=== PATIENT | male | born 1965 | race Caucasian/White ===

== ENCOUNTER → 2025-04-01 13:15 | Outpatient (REF) | payer BC, SELFPAY | LOC: RAD 13:15 | PROVIDERS: ATTENDING PHYSICIAN Physician Assistant Medical | DX: M54.41 Lumbago with sciatica, right side (principal) | CPT/HCPCS: 72110 ==

== ENCOUNTER → 2025-05-01 06:35 | Outpatient (REF) | payer BC, SELFPAY | LOC: MRI 06:35 | PROVIDERS: ATTENDING PHYSICIAN Physician Assistant Medical | DX: M54.41 Lumbago with sciatica, right side (principal); M54.42 Lumbago with sciatica, left side | CPT/HCPCS: 72148 ==

== ENCOUNTER 2025-07-05 12:48 | Emergency (ER) | payer BC, SELFPAY ==
[2025-07-05 12:50] VITALS: BP 136/115
[2025-07-05 13:14] LABS: Hematocrit 43.1 % (39.0-52.0); Hemoglobin 15.1 g/dL (13.0-18.0); Mean Corp Hgb Conc. 35.0 g/dL (33.0-37.0); Mean Corpuscular Volume 79.8 fL (80.0-94.0); Nucleated Red Blood Cells % 0 % (-); Platelet Count 240 10^3/uL (130-400); Red Cell Dist. Width 12.7 % (11.5-14.5)
[2025-07-05 13:21] LABS: ALT (SGPT) 19 U/L (0-50); AST (SGOT) 28 U/L (17-59); Albumin 4.7 g/dl (3.5-5.0); Alkaline Phosphatase 68 U/L (38-126); Blood Urea Nitrogen 15 mg/dl (9-20); Calcium 9.4 mg/dl (8.4-10.2); Carbon Dioxide 23 mmol/L (22-30); Chloride 107 mmol/L (98-107); Glucose 98 mg/dl (70-99); Lipase 79 U/L (23-300); Potassium 3.9 mmol/L (3.5-5.1); Sodium 139 mmol/L (135-145); Total Protein 7.3 g/dl (6.3-8.2); eGFR > 60.00
[2025-07-05] MEDS: LIDOCAINE 4% PATCH 1 PATCH TOPICAL (16:26)
[2025-07-05 16:29] VITALS: BP 133/82
[2025-07-05 17:12] LABS: Urine Character Clear (Clear)
--- NOTE | 2025-07-05 18:21 | ED.GENMED ---
History of Present Illness
General
Chief Complaint: Abdominal Pain
Time Seen by Provider: 07/05/25 15:58
Nursing documentation reviewed up to this point in time: agreed with
History of Present Illness
History of Present Illness:
59-year-old male presents to the ER for evaluation and treatment of sharp burning discomfort along his right flank which present has been admittedly off and on for the last several months. He states that it has been more persistent since yesterday.
He denies any direct injury or trauma. He reports that it is significantly worse with movement and activity. He denies any cough or cold symptoms. No change in appetite. No vomiting or diarrhea. He denies any dysuria or hematuria. He denies
any rash. He has not been taking any medications for his discomfort. He has recently had MRIs of his lumbar spine for sciatica in his left leg, no prior history of issues with disc herniation in his thoracic spine. He denies any fevers.
Past History
Past History
ED Past Medical History: Other (constipation); Negative CAD, COPD, GERD, HTN, Hypercholesterolemia, NIDDM or Hypothyroidism
ED Past Surgical History: Other (umbilical hernia)
Social History
Tobacco: Non-smoker
Alcohol: None
Family History
Family History: Negative Early CAD or Sudden
Review of Systems
Review of Systems
Allergies reviewed?: Yes
Phy Exam
Physical Exam
Physical Exam:
Patient is awake, alert, appears in no acute distress, head is NCAT, PERRL, EOMI mucous membranes moist, conjunctiva pink, heart regular rate and rhythm without murmurs or ectopy, no JVD, lungs are clear to auscultation without wheezes rales or
rhonchi, pain is reproducible on palpation on the right lower ribs anteriorly., No crepitus, no abnormal chest wall excursion, no overlying rash, no midline pain on palpation of thoracic spine, no step-offs, no crepitus, abdomen is soft and
nontender on palpation, no guarding or rebound, no masses, extremities without edema, 2+ DP pulses present symmetric bilateral feet, GCS is 15
Course
Orders/Labs/Results
Orders:
Orders
07/05/25 12:58
Complete Blood Count/With Diff Urgent
Comprehensive Metabolic Panel Urgent
Lipase Urgent
07/05/25 16:15
Lidocaine [Lidocaine 4% Patch] 1 patch TOPICAL DAILY
Apply Lidocaine patch(s) to:: R anterior lower chest wall
07/05/25 16:54
Urinalysis Reflex To Culture Urgent
Date Specimen was Collected: 07/05/25
Time Specimen was Collected: 16:32
07/05/25 17:20
CR Chest - 2 Views Urgent
Comment:
Reason For Exam: R lower chest pain
Abnormal Lab Results
07/05/25 07/05/25
12:58 16:54
MCV 79.8 L fL
(80.0-94.0)
MPV 10.6 H fL
(7.4-10.4)
Total Bilirubin 1.8 H mg/dl
(0.2-1.3)
Urine Ketones 3+ A
(Negative)
07/05/25 12:58
07/05/25 12:58
Labs are very reassuring, CBC normal, BMP normal
Vital Signs
Initial and Last Documented VS:
Initial Vital Signs
Temp Pulse Resp BP Pulse Ox
98.1 F 98 18 136/115 95
07/05/25 12:50 07/05/25 12:50 07/05/25 12:50 07/05/25 12:50 07/05/25 12:50
Last Documented Vital Signs
Temp Pulse Resp BP Pulse Ox
98.1 F 69 18 133/82 98
07/05/25 12:50 07/05/25 16:29 07/05/25 16:29 07/05/25 16:29 07/05/25 18:24
MDM/Problems Addressed
Differential Diagnosis Includes:
Differential diagnosis to consider but not limited to thoracic radiculopathy, occult pneumonia, rib strain, shingles along with other etiologies considered
*Radiology
Radiology exam reviewed: preliminary read by ED provider (I dependently viewed and interpreted x-ray of the chest showing no acute process, no infiltrate) and radiology read reviewed (No acute process)
*Pulse Oximetry
SaO2: 98
Oxygen Mode of Delivery: Room air
Patient hypoxic: no
*Critical Care Note
Total Time (30-74mins, 75-104mins- exclusive of procedures): Not Applicable
Update Note
Update Note:
I spoke with patient and present at bedside at length with regard to duration and quality of patient's pain. Symptoms seem most neuropathic in nature. No rash overlying and that appears to be shingles, would not suspect shingles given
duration of symptoms. He has no abdominal complaints or reproducible abdominal pain on palpation. I discussed with him very reassuring labs. X-rays ordered to rule out occult malignancy versus mass versus rib lesion-no acute process seen on chest
x-ray. Patient was given a salonpas patch with some improvement in his symptoms. I discussed with him possible use of Tylenol or ibuprofen for additional pain relief-he is declining any oral analgesics. I discussed with patient need to follow-up
with primary care physician as he may benefit from imaging of his thoracic spine as he may have disc herniation they are which are causing his symptoms. Patient and present bedside feel comfortable with plan for discharge and had no questions
prior to leaving the department.
ED Attending Note
-
Portions of this chart may have been created with voice recognition software.� Occasional wrong word or��sound alike� substitutions may have occurred due to the inherent limitations of voice recognition software.
Discharge Plan
Departure
Patient Disposition: Home (Routine Discharge)
Date of Disposition: 07/05/25
Time of Disposition: 18:22
Patient with high blood pressure during this ER visit?: No
Discharge Problem:
Acute pain, Radicular pain of thoracic region
Instructions: Radiculopathy of the neck and back (including sciatica) (DC)
Prescriptions:
No Action
polyethylene glycol 3350 17 GRAMS powder in packet
17 grams PO DAILY Qty: 14 0RF
Referrals:
Candida Choi PA [Family Provider, Family Practice]
Activity Restrictions/Additional Instructions:
Please use topical pain relieving patches, Salonpas or similar, as available [id number] as needed for your discomfort. Please follow-up with your primary care physician for reevaluation and further care as you may benefit from additional
imaging to assess for possible pinched nerve in your midback. Return to the ER for any concerns. Please also consider using Tylenol and/or ibuprofen as needed for discomforts.
Interventions
Interventions:
*Risk Screen - Suicide Last Done: 07/05/25 12:52
*General Assessment Last Done: 07/05/25 16:29
*Neglect/Abuse Screening Last Done: 07/05/25 12:52
*ED COVID-19 Vaccine History Last Done: 07/05/25 16:29
*Nursing Disposition Last Done: 07/05/25 18:33
QZ-Tfvomo-Crezuxqfxm Assessment Last Done: 07/05/25 17:12
Discharge Date and Time
Discharge Date/Time: 07/05/25 18:33
Print Language: CITIZEN OF [place]
== END 2025-07-05 18:33 | disposition home or self-care (01) ==
LOC: EMR 12:48
PROVIDERS: Emergency Medicine; EMERGENCY PHYSICIAN Emergency Medicine; FAMILY PHYSICIAN Physician Assistant Medical
DX: M54.14 Radiculopathy, thoracic region (principal); R07.89 Other chest pain
CPT/HCPCS: 99284; 71046; 80053; 81003; 83690; 85025

== ENCOUNTER 2025-07-21 10:43 | Inpatient (IN) | payer BC, SELFPAY ==
[2025-07-21 04:27] VITALS: BP 120/94
[2025-07-21 05:11] LABS: Hematocrit 45.6 % (39.0-52.0); Hemoglobin 15.7 g/dL (13.0-18.0); Mean Corp Hgb Conc. 34.4 g/dL (33.0-37.0); Mean Corpuscular Volume 80.9 fL (80.0-94.0); Nucleated Red Blood Cells % 0 % (-); Platelet Count 225 10^3/uL (130-400); Red Cell Dist. Width 12.7 % (11.5-14.5)
[2025-07-21 05:14] LABS: ALT (SGPT) 20 U/L (0-50); AST (SGOT) 28 U/L (17-59); Albumin 5.0 g/dl (3.5-5.0); Alkaline Phosphatase 73 U/L (38-126); Blood Urea Nitrogen 20 mg/dl (9-20); Calcium 9.8 mg/dl (8.4-10.2); Carbon Dioxide 24 mmol/L (22-30); Chloride 106 mmol/L (98-107); Glucose 161 mg/dl (70-99); Lipase 59 U/L (23-300); Potassium 4.4 mmol/L (3.5-5.1); Sodium 140 mmol/L (135-145); Total Protein 7.5 g/dl (6.3-8.2); eGFR > 60.00
--- NOTE | 2025-07-21 06:20 | ED.GENMED ---
History of Present Illness
General
Chief Complaint: Abdominal Pain
Source: patient
Exam Limitations: none
Time Seen by Provider: 07/21/25 06:08
History of Present Illness
History of Present Illness:
59-year-old male otherwise fairly healthy presents complaining of right sided abdominal pain with vomiting starting yesterday after having soup. He has been moving his bowels. No diarrhea. No change in his bowel movements. Pain persistent mainly
to the right upper abdomen does not radiate to the back. He was here several weeks ago for similar pain but did not have any vomiting at that time was thought to have musculoskeletal discomfort. He has a remote history of a hernia repair but no
other surgical history. No other this time
Past History
Past History
ED Past Medical History: Other (constipation); Negative CAD, COPD, GERD, HTN, Hypercholesterolemia, NIDDM or Hypothyroidism
ED Past Surgical History: Other (umbilical hernia)
Social History
Tobacco: Non-smoker
Alcohol: None
Family History
Family History: Negative Early CAD or Sudden
Phy Exam
Physical Exam
Physical Exam:
General: Uncomfortable appearing male no acute respiratory distress
HEENT: Normal cephalic atraumatic
Heart: Regular rate rhythm
Lungs: Clear no wheeze
Abdomen is soft but tender to the right upper quadrant mildly positive Marinelli sign no guarding nondistended no costovertebral angle tenderness
Skin is warm no rash
Course
Orders/Labs/Results
Orders:
Orders
07/21/25 04:30
Add On- LAB Urgent
Tests Added?: lipase
07/21/25 04:33
CMP [Comprehensive Metabolic Panel] Urgent
Complete Blood Count/With Diff Urgent
Lipase Urgent
Comment: ADD ON
07/21/25 06:19
0.9% Sodium Chloride 1000 ml [Nss] 1,000 ml IV BOLUS
Ketorolac [Toradol] 15 mg IV NOW STA
Ondansetron Injectable [Zofran] 4 mg IV NOW STA
US Abdomen Complete/Upper Urgent
Comment:
Reason For Exam: RUQ pain
07/21/25 07:53
CT Abd/pelvis W Iv Cont Urgent
Comment:
Reason For Exam: right upper abdominal pain
Abnormal Lab Results
07/21/25
04:33
MPV 10.7 H fL
(7.4-10.4)
Absolute Neuts (auto) 7.3 H 10^3/uL
(1.4-6.5)
Absolute Lymphs (auto) 0.6 L 10^3/uL
(1.2-3.4)
Neutrophils % 88.9 H %
(42.2-75.2)
Lymphocytes % 7.6 L %
(20.5-51.1)
Glucose 161 H mg/dl
(70-99)
Total Bilirubin 2.1 H mg/dl
(0.2-1.3)
07/21/25 04:33
07/21/25 04:33
Vital Signs
Initial and Last Documented VS:
Initial Vital Signs
Temp Pulse Resp BP Pulse Ox
97.8 F 104 24 120/94 98
07/21/25 04:27 07/21/25 04:27 07/21/25 04:27 07/21/25 04:27 07/21/25 04:27
Last Documented Vital Signs
Temp Pulse Resp BP Pulse Ox
97.8 F 98 24 130/79 98
07/21/25 04:27 07/21/25 06:31 07/21/25 06:31 07/21/25 06:31 07/21/25 06:31
MDM/Problems Addressed
Differential Diagnosis Includes:
Abdominal pain with vomiting. Consider biliary colic versus gastritis/bowel obstruction. Is pretty tender on exam. Will order ultrasound. Toradol and Zofran ordered as well as fluids
Labs reviewed significant for bilirubin of 2.1 otherwise normal transaminases. White count is normal. Lipase is normal
*Pulse Oximetry
SaO2: 98
Oxygen Mode of Delivery: Room air
Patient hypoxic: no
*Critical Care Note
Total Time (30-74mins, 75-104mins- exclusive of procedures): Not Applicable
Update Note
Update Note:
Ultrasound shows slightly distended gallbladder but otherwise normal. Patient with persistent pain. Proceeded to CT scan which demonstrates dilated loops of small bowel. The small bowel distal to this area is decompressed and the small bowel
proximal to this is normal in appearance. This could raise concern for possible closed-loop obstruction. There is no evidence of pneumatosis. Discussed with emergency room attending as well as general surgery. He is feeling better after Toradol
and not currently vomiting.
ED Attending Note
-
Portions of this chart may have been created with voice recognition software.� Occasional wrong word or��sound alike� substitutions may have occurred due to the inherent limitations of voice recognition software.
Discharge Plan
Departure
Patient Disposition: Admit
Date of Disposition: 07/21/25
Time of Disposition: 09:18
Presentation/result/management discussed w/ accepting MD/DO: Hospitalist
Discharge Problem:
Small bowel obstruction
Prescriptions:
No Action
polyethylene glycol 3350 17 GRAMS powder in packet
17 grams PO DAILY Qty: 14 0RF
Referrals:
Candida Choi PA [Family Provider, Family Practice]
Interventions
Interventions:
*Risk Screen - Suicide Last Done: 07/21/25 04:27
*General Assessment Last Done: 07/21/25 06:32
*Neglect/Abuse Screening Last Done: 07/21/25 04:27
*ED- Fall Risk Assessment Last Done: 07/21/25 06:32
*ED COVID-19 Vaccine History Last Done: 07/21/25 06:32
*ED Influenza Vaccine History Last Done: 07/21/25 06:32
[facility]-Pulyqw-Pltwkbkejt Assessment Last Done: 07/21/25 06:32
Discharge Date and Time
Print Language: GABONESE
[2025-07-21] MEDS: NSS 1000 IV ×2 (06:29→12:38)
[2025-07-21] MEDS: ZOFRAN 4 MG IV ×2 (06:29→14:00)
[2025-07-21] MEDS: TORADOL 15 MG IV (06:29)
[2025-07-21 06:31] VITALS: BP 130/79
[2025-07-21 06:33] VITALS: BMI 26.7
--- NOTE | 2025-07-21 10:20 | HPS.HSE ---
Addendum entered and electronically signed by Edgar Rose MD 07/21/25 13:42:
Seen and examined the patient with the resident earlier this morning. Late documentation
Agree with assessment and plan formulated together
59-year-old with history of bowel obstruction x 2 with no need for surgical intervention. Only past surgical history for the abdomen is inguinal hernia repair came in with nausea vomiting and abdominal pain
On examination awake alert oriented
Cardiovascular system S1-S2 appreciated
Chest clear to auscultation
Abdomen decreased bowel sounds, patient had received Dilaudid therefore did not elicit any pain when I examine him no guarding or rigidity
No pedal edema
# High-grade small bowel obstruction
Transition point not appreciated.
Keep n.p.o. with IV fluids
Surgery consultation
# Mild prostatic enlargement-watch for any retention
# DVT prophylaxis-Lovenox
# Full code
Discussed with at bedside
Discussed with surgical team
Original Note:
Family Physician
-
Family Physician: Candida Choi
Chief Complaint
-
Abdominal pain, nausea and emesis.
History of Present Illness
Georgia Kay, 59-year-old male with PMHx significant for small bowel obstruction x 2 (no surgical intervention), and inguinal hernia repair in the past but otherwise healthy presents to the ER for evaluation of sudden onset nausea vomiting and
abdominal pain. Patient had a bowel movement yesterday at 8 AM, had his breakfast and lunch and towards the evening he started having cramping right lower quadrant abdominal pain associated with nausea and emesis. He had more than 6 episodes of
vomiting with most recent vomiting upon arrival to the emergency room. He did not pass any gas or bowel movement after the whole episode started. He also reports to have similar pain several weeks ago without vomiting but attributes this cramping
abdominal pain to muscle aches. He admits to have constipation several years ago, he needed several enemas as a child and adolescent but eventually grew out of it.
He denies having any change in his bowel movements-constipation or diarrhea, black tarry stools or hematochezia, fevers, chills, shortness of breath, dizziness syncope or near syncopal episodes.
He denies having paternal family history of IBD, states father had history of colorectal cancer, he is unaware of maternal family history.
His most recent colonoscopy was 4 years ago, diagnosed with polyps, repeat colonoscopy is due in 2025.
Medical History
Past Medical History
Past Medical History: Reports Other (SBO x 2)
Past Surgical History: Reports Other (Inguinal hernia repair.)
Social History
Tobacco: Non-smoker
Alcohol: None
Drug: None
Personal:
Living: With Family
Employment: Employed
Family History
Family History: Other (Father-colon cancer, diabetes, mother-say several health conditions but unknown to him.)
Allergies / Home Medications
Allergies reflects when Allergies were last updated in [facility].
Home Medications with original date entered in [facility]
Allergy/Medication List:
Allergies
Allergy/AdvReac Type Severity Reaction Status Date / Time
cefuroxime (From Ceftin) Allergy Vomiting Verified 07/21/25 04:29
Penicillins Allergy Unknown Verified 07/21/25 04:29
Home Medications
cholecalciferol (vitamin D3) 25 mcg (1,000 unit) tablet (Vitamin D3) 25 mcg PO DAILY 07/21/25
therapeutic multivitamin 1 tab PO DAILY 07/21/25
Review of Systems
-
Constitutional: Reports Chills
EENT: Reports No Symptoms
Respiratory: Reports No Symptoms
Cardiac: Reports No Symptoms
Abdomen/GI: Reports Abdominal Pain, Nausea and Vomiting
: Reports No Symptoms
Musculoskeletal: Reports No Symptoms
Skin: Reports No Symptoms
Neurological: Reports No Symptoms
Endocrine: Reports No Symptoms
Hematologic/Lymphatic: Reports No Symptoms
Physical Exam
Vital Signs
Vital Signs
Temp Pulse Resp BP Pulse Ox
97.8 F 98 24 130/79 98
07/21/25 04:27 07/21/25 06:31 07/21/25 06:31 07/21/25 06:31 07/21/25 06:31
Physical Exam
General: No Apparent Distress, Comfortable and Conversant
HEENT: Anicteric and PERRLA
Respiratory: Clear; No Wheezes, Rales, Rhonchi or Crackles
Cardiac: S1/S2 and Regular Rhythm; No Murmur, Rub or Gallop
GI: Soft, Tender (Mild tenderness in the right lower quadrant.) and No Hepatosplenomegaly; No Normal Bowel Sounds (High-pitched and hyperactive bowel sounds.)
Genito-urinary: Deferred by me
Musculoskeletal: No Clubbing, No Cyanosis and No Edema
Skin: Warm; No Rash or Lesions
Neuro: AO x 3 and Nonfocal/grossly intact
Psych: Calm
Laboratory Results
-
07/21/25 04:33
07/21/25 04:33
Laboratory Results
Total Bilirubin 2.1 mg/dl (0.2-1.3) H 07/21/25 04:33
AST 28 U/L (17-59) 07/21/25 04:33
ALT 20 U/L (0-50) 07/21/25 04:33
Alkaline Phosphatase 73 U/L (38-126) 07/21/25 04:33
Lipase 59 U/L (23-300) 07/21/25 04:33
Data Reviewed
-
CT Scan: Image Personally Visualized and interpreted, Report Reviewed by me and Discussed with Patient
Medical Tests (Nuc Med, Echo, EKG etc): Report Reviewed by me, Discussed with Physician and Discussed with Patient
Lab Data: Labs Reviewed by me, Discussed with Physician and Discussed with Patient
Impression/Plan
-
IMPRESSION: 59-year-old male, otherwise healthy with remote history of inguinal hernia repair presents to the ER for evaluation of nausea vomiting and abdominal pain. He is diagnosed with small bowel obstruction and is being admitted.
PLAN:
# Acute Small bowel obstruction-
Afebrile, tachycardia and tachypnea, with no leukocytosis in the ER.
CT abdomen shows multiple dilated loops of mid small bowel with no exact transition point.
2 similar episodes in the past 2 years, did not require surgery.
Admit the patient to [facility].
N.p.o., IV Zofran, pain control as needed.
If patient continues to have emesis, plan for NG decompression.
Surgery consulted, appreciate inputs, on board.
No family history of IBD, otherwise no obvious cause of recurrent bowel obstruction.
Check for fecal calprotectin when patient has bowel movement.
Recent colonoscopy 4 years ago significant for colonic polyps.
IV fluids NSS @80.
# DVT prophylaxis-
Sequential compression devices
# CODE STATUS-
Full code.
--- NOTE | 2025-07-21 10:23 | CON.GS ---
Addendum entered and electronically signed by Kelby Arnold MD 07/21/25 16:37:
I was physically present and personally performed the thomsa portions of the surgical evaluation and/or procedure with the resident. I discussed the findings, reviewed the resident�s note, and confirmed the medical decision-making. I provided direct
supervision as required and agree with the assessment and plan as documented with the following additions/corrections:
HPI: 59-year-old male with previous abdominal surgical history of having undergone laparoscopic IPOM umbilical hernia pair with mesh at outside hospital. He has had 1 previous admission for small bowel obstruction in 2019 which resolved with
conservative management. Patient states he was in his usual baseline state of health until yesterday evening when he developed the acute onset of abdominal pain, intermittent crampy with bloating and distention. He then had multiple episodes of
vomiting. Presented to the emergency department for evaluation and CT imaging concerning for small bowel obstruction.
Has felt improvement since earlier this a.m. with near resolution of abdominal pain only residual distention. No further nausea, no vomiting. No recent flatus. Last bowel movement yesterday.
On further discussions patient states that he has similar milder episodes on a monthly basis usually after having larger meals or fibrous meals. His symptoms typically meghann within an hour or so and without nausea or vomiting.
Patient without significant past medical history otherwise.
AFVSS
NAD AAO x 3
ABD: Softly distended, mild areas of tenderness but no rebound rigidity or guarding
CT abdomen/pelvis images personally reviewed and interpreted as well as reviewing radiologist report. Multiple fluid-filled central loops of small bowel. There does appear to be probable transition along the central mesh but without small bowel
feces sign. No radiographic signs of volvulus. No pneumatosis, no free air, no significant free fluid. No small bowel wall thickening.
In comparison to previous CT imaging small bowel is a bit less distended and abrupt transition not visualized on this imaging compared to 2020.
Assessment/plan: 59-year-old male with probable partial small bowel obstruction, recurrent, likely secondary to adhesions in setting of umbilical herniorrhaphy with mesh
No clinical signs of bowel compromise or immediate threat.
Continue bowel rest IV fluid hydration and supportive care
Cannot hold on NG tube placement at this time given clinical improvement.
Subsequent consideration of contrast imaging depending clinical course over the next 12 to 24 hours.
Will follow-up
Original Note:
Consultation
-
Date/Time Consultation Requested: 07/21/2025 9:50
Date/Time Consultation Performed: 07/21/2025 11:30
Requesting Provider: Everardo Kent PA-C
Performing Provider: Kelby Arnold MD; Eliz Banegas MD
Reason for Consultation: SBO
Medical History
-
Chief Complaint: Abdominal pain
History of Present Illness:
59 year old male with past medical history of umbilical hernia s/p repair, allergic rhinitis, basal cell carcinoma s/p MOHS, multiple sessile polyps in gastric fundus and body; other past surgical history include a rotator cuff arthroscopy
presenting with right quadrant abdominal pain. 1 day prior to evaluation, the patient noted feeling bloated, accompanied by nausea, later progressing to multiple episodes of vomiting of previously digested food and bilious fluid. He also started
developing right quadrant pain described as non-radiating, pressure like, intermittent, crampy pain, later becoming a constant pain. He notes having multiple episodes of constipation and abdominal pain a few times a month which usually resolves
spontaneously. He was admitted for small bowel obstruction in 2019, managed conservatively. He was also in the ED last 07/05/25 for similar type of pain. He denies fever and diarrhea. Reportedly ate rice crispies with banana, apple and dates prior
to lunch; notes that he tries to eat a lot of fruits. Last bowel movement was yesterday morning and reports that he normally has regular bowel movement, aside from occasional bouts of constipation.
At time of consult, notes that he was vomiting in the ambulance and in the ER, but the patient reports that his abdominal pain is feeling better after getting pain medications.
CT shows: Multiple dilated loops of mid small bowel. Distal small bowel is decompressed, and the proximal small bowel is not dilated. Findings are consistent with high-grade small bowel obstruction.
Exact transition point not appreciated. No pneumatosis intestinalis or extraluminal air. No abdominal pelvic free fluid.
WBC:8.2, Total Bilirubin 2.1
Past Medical History
Past Medical History: Other (Allergic Rhinitis)
Past Surgical History: Other (Umbilical hernia s/p repair, basal cell cancer s/p MOHS, rotator cuff arthroscopy)
Social History
Tobacco: Non-Smoker
Alcohol: None
Drug: None
Personal:
Living: With Family
Employment: Employed
Family History
Family History: Reviewed & Not Pertinent
Allergies / Home Medications
Allergy/AdvReac Type Severity Reaction Status Date / Time
cefuroxime (From Ceftin) Allergy Vomiting Verified 07/21/25 04:29
Penicillins Allergy Unknown Verified 07/21/25 04:29
�Medication �Instructions �Recorded �Confirmed �Type
cholecalciferol (vitamin D3) 25 25 mcg PO DAILY 07/21/25 07/21/25 History
mcg (1,000 unit) tablet (Vitamin
D3)
therapeutic multivitamin 1 tab PO DAILY 07/21/25 07/21/25 History
Review of Systems
-
History Source: Patient
A 10 point review of systems was completed, and was negative except as per HPI.
Physical Exam
Vital Signs
Temp Pulse Resp BP Pulse Ox
97.8 F 98 24 130/79 98
07/21/25 04:27 07/21/25 06:31 07/21/25 06:31 07/21/25 06:31 07/21/25 06:31
07/20/25 07/21/25 07/22/25
06:59 06:59 06:59
Actual Weight 72.8 kg
Body Mass Index (BMI) 26.7
Lab Results
07/21/25 04:33
07/21/25 04:33
WBC 8.2 10^3/uL (4.8-10.8) 07/21/25 04:33
Hgb 15.7 g/dL (13.0-18.0) 07/21/25 04:33
Hct 45.6 % (39.0-52.0) 07/21/25 04:33
Plt Count 225 10^3/uL (130-400) 07/21/25 04:33
Abs Immat Gran (auto) 0.0 10^3/uL (0-0.05) 07/21/25 04:33
Neutrophils % 88.9 % (42.2-75.2) H 07/21/25 04:33
Physical Exam
General: Well Developed, Well Nourished and No Apparent Distress
Respiratory: Non Labored Respirations
GI: Soft, Tender (left supraumbilical area ) and Distended
Skin: Warm
Neuro: AO x 3
Psych: Calm
Data Reviewed
-
CT Scan: Image Personally Visualized and interpreted (by attending surgeon), Report Reviewed by me (and by attending surgeon) and Discussed with Patient (by attending surgeon)
Assessment / Plan
-
59 year old male with past medical history of umbilical hernia s/p repair, allergic rhinitis, basal cell carcinoma s/p MOHS, multiple sessile polyps in gastric fundus and body, other past surgical history include a rotator cuff arthroscopy
presenting with right quadrant abdominal pain associated with nausea and multiple episodes of vomiting. Notes recurrent bouts of abdominal pain and constipation a few times a month. Prior admission of SBO in 2019 managed conservatively; in the ED on
07/05/2025 for similar type of pain, Eats lots of fruits. LBM: yesterday morning. (-) flatus today. Abdominal pain feeling better with pain medication, last vomiting episode was in the ER.
CT shows: Multiple dilated loops of mid small bowel. Distal small bowel is decompressed, and the proximal small bowel is not dilated. Findings are consistent with high-grade small bowel obstruction.
Exact transition point not appreciated. No pneumatosis intestinalis or extraluminal air. No abdominal pelvic free fluid.
WBC:8.2, Total Bilirubin 2.1
#Small Bowel Obstruction
-NPO and bowel rest-- Imaging was reviewed; closed-loop bowel obstruction seems unlikely. Reports that abdominal pain is feeling better and reports multiple episode of similar pain spontaneously resolving or managed conservatively.
Possibility of NGT decompression if no improvement, possible need for follow up imaging, and avoiding diet rich in fiber discussed. Concerns for frequent recurrence of symptoms also explained to the patient; discussed that he may benefit from
outpatient follow-up. Questions answered in length.
-IV fluids
-Pain management and antiemetics
-DVT prophylaxis
-Medical management per primary team
[2025-07-21 10:50] VITALS: BP 130/77
--- NOTE | 2025-07-21 12:05 | EDCM ---
CM reviewed chart and met with patient at bedside in ED
Pt lives in a 2 story home [address] with his
bathroom on the first floor
Pt reports he was indep with ADLs prior to admission
Ambulating without assistive device
no DME use
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
PCP Candida Choi
RX plan yes
RX [facility] in [place]
no hx of VN nor SNF
anticipated dc location ; home
CM will continue to follow pt discharge planning needs
[2025-07-21 12:33] VITALS: BMI 25.8
[2025-07-21 12:44] VITALS: BP 140/84
--- NOTE | 2025-07-21 15:10 | PTCARENOTE ---
Assumed care of pt at 1500. NG tube ordered, pt agreeable to procedure.
[2025-07-21 15:25] VITALS: BP 137/84
[2025-07-21 16:20] LABS: TSH 0.89 uIU/ml (0.47-4.68)
--- NOTE | 2025-07-21 16:40 | PTCARENOTE ---
Place 16 fr NG tube in pt's r nare; pt tolerated procedure, initial output of 250 ml brown/green drainage.
[2025-07-21] MEDS: LOVENOX 40 MG SC (17:02)
[2025-07-21] MEDS: ANESTHETIC LOZENGE 1 LOZENGE PO (22:29)
[2025-07-21 23:05] VITALS: BP 126/82
[2025-07-22] MEDS: NSS 1000 IV ×2 (00:45→15:36)
[2025-07-22 07:13] VITALS: BP 115/77
--- NOTE | 2025-07-22 07:15 | W.PN.HOSP.TC ---
Addendum entered and electronically signed by Edgar Rose MD 07/22/25 14:29:
Seen and examined the patient with the resident earlier this morning.
Agree with assessment and plan formulated together
59-year-old with history of bowel obstruction x 2 with no need for surgical intervention. Only past surgical history for the abdomen is inguinal hernia repair came in with nausea vomiting and abdominal pain
On examination awake alert oriented
Cardiovascular system S1-S2 appreciated
Chest clear to auscultation
Abdomen decreased bowel sounds, No tenderness
No pedal edema
# High-grade small bowel obstruction
Transition point not appreciated.
Keep n.p.o. with IV fluids
SBFT today
Surgery consultation
# Mild prostatic enlargement-watch for any retention. OP Urology follow up
# DVT prophylaxis-Lovenox
# Full code
Discussed with at bedside
Original Note:
Today's Communication/Plan
-
Continue NG tube per surgery team
Continue IV pain meds
Continue IV Zofran
Assessment / Plan
Assessment / Plan
Assessment:
This is a 59 y/o male with pmhx of small bowel obstruction (No surgical interventions required), inguinal hernia repair who presented to the ED on 07/21/2025 with sudden onset of nausea, vomiting, and abdominal pain and was found to have a small
bowel obstruction on CT scan.
Plan:
Acute, High-Grade Small Bowel Obstruction
-Patient with history of small bowel obstruction in 2019 without surgical intervention required
-Recent colonoscopy 4 years ago significant only for colonic polyp
-CT Scan showed multiple dilated loops of mid small bowel with no exact transition point
-Continue IV Zofran PRN for nausea
-Continue pain medications PRN (Hydromorphone 0.25mg IV Q4h, Ketorolac 10mg IV Q6h,
-Continue IV Fluids while patient remains NPO
-NG tube in place.
-Surgery has been consulted, appreciate their insight into his case
-Will monitor
Elevated Bilirubin
-Known to him, chronic and being followed by PCP
-Encouraged outpatient follow up
Mild Prostatic Enlargement
-Monitor for signs of urinary retention
Anticipated Discharge: 24 - 48 hours
Subjective/Interval History
-
Date of Service: July 22, 2025
Patient was sitting in his room with NG tube in place when I arrived. He reports overall feeling better than he did the day prior. He has not had any bowel movements since 07/20 but has passed gas as recently a this morning. He has some mild
abdominal discomfort that he is not able to say if it is nausea or pain, mainly midline. He has been free of fevers and chills.
He did clarify his medical history:
Hernia repair in early
Small bowel obstruction (No NG tube, no surgery) in 2019. Unsure if second SBO occurred after this.
He has a known personal history of elevated Bilirubin being followed by his PCP for several years
Objective Data
-
Labs:
Laboratory Results
07/22/25
06:55
WBC Pending
Hgb Pending
Hct Pending
Plt Count Pending
Sodium Pending
Potassium Pending
Chloride Pending
Carbon Dioxide Pending
BUN Pending
Creatinine Pending
Glucose Pending
Calcium Pending
Vital Signs:
Vital Signs
Temp Pulse Resp BP Pulse Ox
98.8 F 91 18 126/82 96
07/21/25 23:05 07/21/25 23:05 07/21/25 23:05 07/21/25 23:05 07/21/25 23:05
I&O
07/21/25 07/22/25 07/23/25
06:59 06:59 06:59
Intake Total 1000 / 1000
Output Total 400 / 400
Balance 600 / 600
Review of Systems
-
History Source: Patient and Family
Constitutional: Denies Fever, Weight Loss, No Appetite or Chills
Respiratory: Denies Cough or Trouble Breathing
Cardiac: Denies Chest Pain or Palpitations
Abdomen/GI: Reports Abdominal Pain and Nausea; Denies Vomiting (Not since ED), Diarrhea or Constipated
Neuro: Denies Dizzy, Weakness, Numbness or Lightheadedness
Physical Exam
-
General: Well Developed, Well Nourished, No Apparent Distress and Comfortable
HEENT: Normocephalic, Atraumatic and Other (NG tube in place)
Respiratory: Clear to Auscultation
Cardiac: Regular Rhythm and S1/S2
GI: Soft, Nontender and Other (Bowel sounds somewhat high pitched)
Skin: Warm and Dry
Neuro: Awake, Alert and Oriented
Psych: Calm and Intact Judgement/Insight
[2025-07-22 07:47] LABS: Blood Urea Nitrogen 30 mg/dl (9-20); Calcium 8.6 mg/dl (8.4-10.2); Carbon Dioxide 25 mmol/L (22-30); Chloride 111 mmol/L (98-107); Estimated Creatinine Clearance 75 ml/min; Glucose 97 mg/dl (70-99); Potassium 3.6 mmol/L (3.5-5.1); Sodium 143 mmol/L (135-145); eGFR > 60.00
[2025-07-22 07:59] LABS: Hematocrit 40.7 % (39.0-52.0); Hemoglobin 13.9 g/dL (13.0-18.0); Mean Corp Hgb Conc. 34.2 g/dL (33.0-37.0); Mean Corpuscular Volume 82.9 fL (80.0-94.0); Nucleated Red Blood Cells % 0 % (-); Platelet Count 178 10^3/uL (130-400); Red Cell Dist. Width 12.9 % (11.5-14.5)
[2025-07-22 10:30] LABS: Hepatitis C Antibody Negative (Negative)
[2025-07-22] MEDS: ANESTHETIC LOZENGE 1 LOZENGE PO ×2 (10:30→15:36)
[2025-07-22 11:12] VITALS: BP 118/58
--- NOTE | 2025-07-22 11:51 | CM ---
Reviewed chart. Met with pt and bedside. NGT in place. Having diagnostic studies today
Plan: Home no needs
--- NOTE | 2025-07-22 12:09 | W.PN.GS2 ---
Addendum entered and electronically signed by Mandeep Salmeron MD 07/22/25 13:06:
Patient seen and examined.
Reports improvement, less abdominal pain and distention. Passing flatus, no BM. Mild nausea, no emesis. Afebrile.
Gen: NAD
HEENT: NGT with light bilious output
Abd: soft, minimal tenderness, mild distension, non-peritoneal, prior incisions well healed
Patient is a 59 yo M p/w recurrent pSBO secondary to adhesions in setting of umbilical herniorrhaphy with mesh.
AFVSS
No leukocytosis
No clinical signs of bowel compromise or immediate threat.
Passing flatus now, minimal NGT outputs after placement yesterday evening.
Plan:
-- SBFT today
-- NPO with sips of clears/ice chips
-- IVF/Supportive measures
-- Clamp NGT anticipate removal later today pending imaging/symptoms
Original Note:
Today's Communication / Plan
-
SBFT
Assessment / Plan
-
59-year-old male with probable partial small bowel obstruction, recurrent, likely secondary to adhesions in setting of umbilical herniorrhaphy with mesh. No clinical signs of bowel compromise or immediate threat.
AFVSS
No leukocytosis
Passing flatus now, minimal NGT outputs after placement yesterday evening
Plan:
SBFT today
NPO with sips of clears/ice chips
Clamp NGT anticipate removal later today pending imaging/symptoms
IVF/Supportive measures
Will follow
Subjective Data
-
Date of Service: July 22, 2025
Pt seen and examined at bedside with Dr. Salmeron. Feeling better overall and has been passing flatus. Some abdominal discomfort but unsure if its more hunger pains. Denies pain.
Objective Data
-
Intake and Output
07/21/25 07/22/25 07/23/25
06:59 06:59 06:59
Intake Total 1000 / 999
Output Total 400 / 400 425 / 425
Balance 600 / 600 -425 / -425
Intake:
IV fluids (Total) 1000 / 1000
Output:
Gastrointestinal tube output ( 400 / 400
Total)
[place] Sump 400 / 400
Urine, Voided 0 / 0 425 / 425
Other:
Number of approximated MODERATE 1
amounts of urine
Vital Signs
Temp Pulse Resp BP Pulse Ox
98.7 F 87 16 118/58 97
07/22/25 11:12 07/22/25 11:12 07/22/25 11:12 07/22/25 11:12 07/22/25 11:12
Lab Results
07/22/25 06:55
07/22/25 06:55
Calcium 8.6 mg/dl (8.4-10.2) 07/22/25 06:55
Total Bilirubin 2.1 mg/dl (0.2-1.3) H 07/21/25 04:33
AST 28 U/L (17-59) 07/21/25 04:33
ALT 20 U/L (0-50) 07/21/25 04:33
Alkaline Phosphatase 73 U/L (38-126) 07/21/25 04:33
Total Protein 7.5 g/dl (6.3-8.2) 07/21/25 04:33
Albumin 5.0 g/dl (3.5-5.0) 07/21/25 04:33
Physical Exam
-
NAD
ABD soft, minimally distended, nt
NGT with light outputs
[2025-07-22] MEDS: REFRESH EYE DROPS (PF) 1 DROPS OPHTH (16:04)
[2025-07-22] MEDS: LOVENOX 40 MG SC (17:16)
[2025-07-22 23:47] VITALS: BP 137/83
[2025-07-23] MEDS: NSS 1000 IV (03:28)
[2025-07-23 07:30] VITALS: BP 122/71
[2025-07-23 08:55] LABS: Hematocrit 37.8 % (39.0-52.0); Hemoglobin 12.7 g/dL (13.0-18.0); Mean Corp Hgb Conc. 33.6 g/dL (33.0-37.0); Mean Corpuscular Volume 83.3 fL (80.0-94.0); Nucleated Red Blood Cells % 0 % (-); Platelet Count 168 10^3/uL (130-400); Red Cell Dist. Width 12.9 % (11.5-14.5)
[2025-07-23 09:24] LABS: Blood Urea Nitrogen 34 mg/dl (9-20); Calcium 8.4 mg/dl (8.4-10.2); Carbon Dioxide 25 mmol/L (22-30); Chloride 112 mmol/L (98-107); Estimated Creatinine Clearance 84 ml/min; Glucose 83 mg/dl (70-99); Potassium 3.6 mmol/L (3.5-5.1); Sodium 143 mmol/L (135-145); eGFR > 60.00
--- NOTE | 2025-07-23 10:12 | W.PN.HOSP.TC ---
Today's Communication/Plan
-
Advance diet as tolerated
Will consider stopping IV fluids if patient tolerates diet well
Assessment / Plan
Assessment / Plan
Assessment:
This is a 59 y/o male with pmhx of small bowel obstruction (No surgical interventions required), inguinal hernia repair who presented to the ED on 07/21/2025 with sudden onset of nausea, vomiting, and abdominal pain and was found to have a small
bowel obstruction on CT scan.
Plan:
Acute, High-Grade Small Bowel Obstruction, Resolving
-Patient with history of small bowel obstruction in 2019 without surgical intervention required. Only known abdominal surgery was a hernia repair in early .
-Recent colonoscopy 4 years ago significant only for colonic polyp
-CT Scan showed multiple dilated loops of mid small bowel with no exact transition point
-Continue IV Zofran PRN for nausea
-Continue pain medications PRN (Hydromorphone 0.25mg IV Q4h, Ketorolac 10mg IV Q6h)
-S/p NG tube decompression which was successfully removed on 07/22
-Continue IV Fluids while patient remains NPO. If he tolerates breakfast well, will d/c IV fluids later today
-Surgery has been consulted, appreciate their insight into his case
-Will monitor
Elevated Bilirubin
-Known to him, chronic and being followed by PCP
-Encouraged outpatient follow up
Mild Prostatic Enlargement
-Monitor for signs of urinary retention
Anticipated Discharge: Within 24 hours
Subjective/Interval History
-
Date of Service: July 23, 2025
Patient was walking around when I arrived. He states he is doing well, and is free of nausea, vomiting, abdominal pain. He has continued to pas gas and this morning also had 3 soft bowel movements. He had not eaten food yesterday, as his diet was
advanced to clear liquids this AM for breakfast. So far he has had no pain with what he has eaten.
Objective Data
-
Labs:
Laboratory Results
07/23/25
07:31
WBC 2.6 L
Hgb 12.7 L
Hct 37.8 L
Plt Count 168
Sodium 143
Potassium 3.6
Chloride 112 H
Carbon Dioxide 25
BUN 34 H
Creatinine 0.8
Glucose 83
Calcium 8.4
Vital Signs:
Vital Signs
Temp Pulse Resp BP Pulse Ox
98.5 F 77 18 122/71 95
07/23/25 07:30 07/23/25 07:30 07/23/25 07:30 07/23/25 07:30 07/23/25 07:30
I&O
07/22/25 07/23/25 07/24/25
06:59 06:59 06:59
Intake Total 1000 / 1000 990 / 990
Output Total 400 / 400 525 / 525
Balance 600 / 600 465 / 465
Review of Systems
-
History Source: Patient
Constitutional: Denies Fever or Chills
Respiratory: Denies Cough or Trouble Breathing
Cardiac: Denies Chest Pain
Abdomen/GI: Denies Abdominal Pain, Nausea, Vomiting, Diarrhea or Constipated
Neuro: Denies Dizzy
Physical Exam
-
General: Well Developed, Well Nourished, No Apparent Distress and Comfortable
HEENT: Normocephalic and Atraumatic
Respiratory: Clear to Auscultation
Cardiac: Regular Rhythm and S1/S2
GI: Soft, Nontender, Nondistended and Other (Slightly hypoactive bowel sounds)
Skin: Warm and Dry
Neuro: Awake, Alert and Oriented
Psych: Calm
--- NOTE | 2025-07-23 12:58 | W.PN.UPDATE ---
Update Note
Progress Note Update
HPI: 59 y/o male with PMH small bowel obstruction (no surgical interventions required), inguinal hernia repair; p/w sudden onset of nausea, vomiting, and abdominal pain and was found to have small bowel obstruction on CT scan.
A/P:
# Acute, High-Grade Small Bowel Obstruction, Resolving
# history of small bowel obstruction in 2019 without surgical intervention required. Only known abdominal surgery was a hernia repair in early .
# Recent colonoscopy 4 years ago significant only for colonic polyp
CT AP this admission showed multiple dilated loops of mid small bowel with no exact transition point
s/p NGT
started clears today
Can DC IVF if tolerating clears
Appreciate GS input
IV Zofran PRN for nausea
pain control PRN
# Mild hyperbilirubinemia , chronic
# Mild Prostatic Enlargement
Monitor for signs of urinary retention
--- NOTE | 2025-07-23 13:11 | W.PN.GS2 ---
Today's Communication / Plan
-
trial of clears then adat to fulls
Assessment / Plan
-
59-year-old male with probable partial small bowel obstruction, recurrent, likely secondary to adhesions in setting of umbilical herniorrhaphy with mesh. No clinical signs of bowel compromise or immediate threat.
AFVSS
No leukocytosis
Passing flatus/BMs now
07/22 SBFT with some delayed transit but contrast did reach colon, some sb distention still present on image. NGT removed after testing.
Plan:
Trial of clears, ok to advance to FLD for dinner if tolerating
Ok to D/C IVF once tolerating PO intake
Analgesics if needed
OP follow up planned to discuss elective surgical options
Subjective Data
-
Date of Service: July 23, 2025
Pt seen and examined at bedside with Dr. Christina. Denies n/v. Passed a few loose stools overnight. Denies n/v. Passing gas. Denies pain.
Objective Data
-
Intake and Output
07/22/25 07/23/25 07/24/25
06:59 06:59 06:59
Intake Total 1000 / 1000 990 / 990
Output Total 400 / 400 525 / 525
Balance 600 / 600 465 / 465
Intake:
IV fluids (Total) 1000 / 1000 960 / 960
Amount instilled into GI Tube ( 30 / 30
Total)
[place] Sump 30 / 30
Output:
Gastrointestinal tube output ( 400 / 400 100 / 100
Total)
[place] Sump 400 / 400 100 / 100
Urine, Voided 0 / 0 425 / 425
Other:
Number of approximated MODERATE 1 2
amounts of urine
Vital Signs
Temp Pulse Resp BP Pulse Ox
98.5 F 77 18 122/71 95
07/23/25 07:30 07/23/25 07:30 07/23/25 07:30 07/23/25 07:30 07/23/25 12:04
Lab Results
07/23/25 07:31
07/23/25 07:31
Calcium 8.4 mg/dl (8.4-10.2) 07/23/25 07:31
Total Bilirubin 2.1 mg/dl (0.2-1.3) H 07/21/25 04:33
AST 28 U/L (17-59) 07/21/25 04:33
ALT 20 U/L (0-50) 07/21/25 04:33
Alkaline Phosphatase 73 U/L (38-126) 07/21/25 04:33
Total Protein 7.5 g/dl (6.3-8.2) 07/21/25 04:33
Albumin 5.0 g/dl (3.5-5.0) 07/21/25 04:33
Physical Exam
-
NAD
ABD soft, nd, nt
[2025-07-23 15:25] VITALS: BP 137/82
[2025-07-23] MEDS: LOVENOX 40 MG SC (17:15)
[2025-07-23 23:11] VITALS: BP 127/74
[2025-07-24 06:35] LABS: Hematocrit 36.3 % (39.0-52.0); Hemoglobin 12.5 g/dL (13.0-18.0); Mean Corp Hgb Conc. 34.4 g/dL (33.0-37.0); Mean Corpuscular Volume 83.6 fL (80.0-94.0); Nucleated Red Blood Cells % 0 % (-); Platelet Count 173 10^3/uL (130-400); Red Cell Dist. Width 12.7 % (11.5-14.5)
--- NOTE | 2025-07-24 07:20 | W.PN.HOSP.TC ---
Today's Communication/Plan
-
Advance diet as tolerated
Discharge planning
Assessment / Plan
Assessment / Plan
Assessment:
This is a 59 y/o male with pmhx of small bowel obstruction (No surgical interventions required), inguinal hernia repair who presented to the ED on 07/21/2025 with sudden onset of nausea, vomiting, and abdominal pain and was found to have a small
bowel obstruction on CT scan.
Plan:
Acute, High-Grade Small Bowel Obstruction, Resolving
-Patient with history of small bowel obstruction in 2019 without surgical intervention required. Only known abdominal surgery was a hernia repair in early .
-Recent colonoscopy 4 years ago significant only for colonic polyp
-CT Scan showed multiple dilated loops of mid small bowel with no exact transition point
-Surgery has been consulted, will appreciate their insight into his case
-Continue IV Zofran PRN for nausea
-Continue pain medications PRN (Hydromorphone 0.25mg IV Q4h, Ketorolac 10mg IV Q6h)
-S/p NG tube decompression which was successfully removed on 07/22
-Diet was advanced to clear liquids on 07/23 for breakfast and lunch, then to full liquids for dinner
-Continue to advance diet per Surgery recommendations, low residue today
-Will monitor
Elevated Bilirubin
-Known to him, chronic and being followed by PCP
-Encouraged outpatient follow up
Mild Prostatic Enlargement
-Monitor for signs of urinary retention
Anticipated Discharge: Today
Subjective/Interval History
-
Date of Service: July 24, 2025
Patient was resting comfortably in his room when I arrived. He is free of nausea, vomiting, diarrhea, constipation or abdominal pain. He tolerated liquid diet yesterday and is bored of his current diet of full liquids. He would like to be advanced
to solid foods.
Objective Data
-
Labs:
Laboratory Results
07/24/25
05:45
WBC 3.5 L
Hgb 12.5 L
Hct 36.3 L
Plt Count 173
Sodium Pending
Potassium Pending
Chloride Pending
Carbon Dioxide Pending
BUN Pending
Creatinine Pending
Glucose Pending
Calcium Pending
Vital Signs:
Vital Signs
Temp Pulse Resp BP Pulse Ox
98.5 F 66 16 127/74 96
07/23/25 23:11 07/23/25 23:11 07/23/25 23:11 07/23/25 23:11 07/23/25 23:11
I&O
07/23/25 07/24/25 07/25/25
06:59 06:59 06:59
Intake Total 990 / 990 360 / 360
Output Total 525 / 525
Balance 465 / 465 360 / 360
Review of Systems
-
History Source: Patient
Constitutional: Denies Fever or Chills
Respiratory: Denies Cough or Trouble Breathing
Cardiac: Denies Chest Pain
Abdomen/GI: Denies Abdominal Pain, Nausea, Vomiting, Diarrhea or Constipated
Neuro: Denies Dizzy
Physical Exam
-
General: Well Developed, Well Nourished, No Apparent Distress and Comfortable
HEENT: Normocephalic and Atraumatic
Respiratory: Clear to Auscultation
Cardiac: Regular Rhythm and S1/S2
GI: Soft, Nontender, Nondistended and Normal Bowel Sounds
Skin: Warm and Dry
Neuro: Awake, Alert and Oriented
Psych: Calm
[2025-07-24 07:27] VITALS: BP 135/81
[2025-07-24 07:34] LABS: Blood Urea Nitrogen 25 mg/dl (9-20); Calcium 8.3 mg/dl (8.4-10.2); Carbon Dioxide 28 mmol/L (22-30); Chloride 108 mmol/L (98-107); Estimated Creatinine Clearance 84 ml/min; Glucose 81 mg/dl (70-99); Potassium 3.6 mmol/L (3.5-5.1); Sodium 139 mmol/L (135-145); eGFR > 60.00
--- NOTE | 2025-07-24 08:47 | W.PN.UPDATE ---
Addendum entered and electronically signed by Aure Esposito MD 07/24/25 11:55:
total DC time 40 min
Original Note:
Update Note
Progress Note Update
I saw and evaluated the patient with the residents.
HPI: 59 y/o male with PMH small bowel obstruction (no surgical interventions required), inguinal hernia repair; p/w sudden onset of nausea, vomiting, and abdominal pain and was found to have small bowel obstruction on CT scan.
A/P:
# Acute, High-Grade Small Bowel Obstruction, Resolving
# history of small bowel obstruction in 2019 without surgical intervention required. Only known abdominal surgery was a hernia repair in early .
# Recent colonoscopy 4 years ago significant only for colonic polyp
CT AP this admission showed multiple dilated loops of mid small bowel with no exact transition point
s/p NGT
diet advanced to low residue which pt tolerated well, OK for DC
Appreciate GS input
# Mild hyperbilirubinemia , chronic
# Mild Prostatic Enlargement
Monitor for signs of urinary retention
--- NOTE | 2025-07-24 10:44 | W.DCSUMMARY ---
Documented by User: Gabriella Smith DO, Resident 07/24/25 11:57
Discharge Summary
Discharge Data
Date of Admission: 07/21/25
Date of Discharge: 07/24/25
-
Pending Results: No
Hospital Course
Discharging Physician : Dr. Esposito
Disposition : Good
Primary care physician :
Principal Discharge diagnosis : Acute, High-Grade Small Bowel Obstruction
Chronic Discharge diagnosis : Elevated Bilirubin, Mild Prostatic Enlargement
Hospital Course :
This is a 59 y/o male with pmhx of small bowel obstruction x 2 (No surgical interventions required), inguinal hernia repair who presented to the ED on 07/21/2025 with sudden onset of nausea, vomiting, and abdominal pain. His last bowel movement had
been 07/20 at 8AM, after which he had breakfast and lunch. Late in the evening on 07/20 he began to experience right lower abdominal cramping pain with nausea and vomiting. He continued to vomit until he arrived in the Emergency Department early in
the morning on 07/21.
In the ED, his WBC was within normal limits. His total bilirubin was 2.1, otherwise CMP was within normal limits for a non-fasting test. Abdominal Ultrasound showed Gallbladder mildly distended, no gallstones, no evidence of acute cholecystitis, no
biliary ductal dilation. No additional sonographic abnormalities. CT of the Abdomen/Pelvis showed multiple dilated loops of mid small bowel. Distal small bowel is compressed and the proximal small bowel is not dilated. Findings are constituent with
high-grade small bowel obstruction. Lack of dilation of the proximal small bowel raises concern for closed loop small bowel obstruction. Exact transition point is not appreciated. Mild prostatic enlargement. No pneumatosis interstialis or
extraluminal air. No abdominal pelvic free fluid. He was admitted to the hospital for further management.
He required NG Tube decompression, which was removed on 07/22. Abdominal X-ray and Small Bowel Follow Through results as noted below. His diet was advanced to clear liquids for breakfast and lunch on 07/23, and then full liquid for dinner. His diet
was further advanced on 07/24 to low residue, which he again tolerated without symptoms. He was found to be medically stable and discharged to home on 07/24. He was instructed to follow up with his PCP in less than 1 week, as well as with surgery in
2-4 weeks to discuss outpatient management. No changes to his prescriptions were made at this time.
Important imaging findings :
Abdominal US 07/21: Gallbladder is mildly distended. No gallstones, and no evidence of acute cholecystitis. No biliary ductal dilation. No additional sonographic abnormalities demonstrated.
CT Ab/Pelvis 07/21: Multiple dilated loops of mid small bowel. Distal small bowel is decompressed, and the proximal small bowel is not dilated. Findings are consistent with high-grade small bowel obstruction. Lack of dilation of the proximal small
bowel raises concern for closed loop small bowel obstruction. Exact transition point is not appreciated. No pneumatosis intestinalis or extraluminal air. No abdominal pelvic free fluid. Mild prostatic enlargement.
Abdominal X-ray 07/22: Again seen are multiple dilated small bowel loops within the midabdomen compatible with obstruction. Small bowel loops within the right lower quadrant are relatively decompressed. Small amount of gas and stool within the
proximal colon, slightly improved compared to the prior study. Distal colon is decompressed.
Small Bowel X-ray 07/22: Persistently dilated loops of jejunal small bowel, but contrast material does pass into the colon after 2 hours.
Procedure findings : N/a
Discharge Plan
-
Patient Disposition: Home (Routine Discharge)
Discharge Diagnosis/Procedures: Acute high-grade Small Bowel Obstruction;
Mild Prostatic Enlargement
Condition: Good
Diet: As tolerated, Low Fiber and Low Residue
Additional Diets: Avoid roughage (raw carrot, raw celery, raw broccoli etc.) in your diet
Activity: No restrictions
Driving Restrictions: As prior to admission
Bathing Restrictions: None
Activity Restrictions/Additional Instructions:
Follow-up with urology as outpatient for enlarged prostate.
Instructions: Low-fiber diet
Referrals:
Candida Choi PA [Family Provider, Family Practice] - in less than 1 week
Kelby Arnold MD [Active, Surgical] - in two to four weeks
Additional Discharge Medication Instructions: Thank you for visiting [facility].
No changes have been made to your prescription at this time.
Prescriptions:
Continued
therapeutic multivitamin Tablet
1 tab PO DAILY
cholecalciferol (vitamin D3) [Vitamin D3] 25 mcg (1,000 unit) Tablet
25 mcg PO DAILY
Discharge Orders:
Discharge Patient (As Directed); Ordered 07/24/25
Ordered By: Gabriella Smith
Discharge Date and Time
Discharge Date/Time: 07/24/25 12:30
Print Language: MALAY

Documented by User: Aure Esposito MD 07/24/25 12:52
Discharge Summary
Discharge Data
Date of Admission: 07/21/25
Date of Discharge: 07/24/25
Hospital Course
Discharging Physician : Dr. Esposito
Disposition : Good
Primary care physician :
Principal Discharge diagnosis : Acute, High-Grade Small Bowel Obstruction
Chronic Discharge diagnosis : Elevated Bilirubin, Mild Prostatic Enlargement
Hospital Course :
This is a 59 y/o male with pmhx of small bowel obstruction x 2 (no surgical interventions required), inguinal hernia repair who presented to the ED on 07/21/2025 with sudden onset of nausea, vomiting, and abdominal pain. He was admitted for
high-grade small bowel obstruction noted on his CT AP.
He initially required NG Tube decompression, which was removed on 07/22. Abdominal X-ray and Small Bowel Follow Through results as noted below. His diet was slowly advanced, first to clear liquids then eventually to low residue prior to discharge
which he tolerated well.
He was discharged to home on 07/24. He was instructed to follow up with his PCP in less than 1 week, as well as with surgery in 2-4 weeks to discuss outpatient management. He has been informed to avoid roughage in his diet.
No changes to his prescriptions were made at this time.
Important imaging findings :
Abdominal US 07/21: Gallbladder is mildly distended. No gallstones, and no evidence of acute cholecystitis. No biliary ductal dilation. No additional sonographic abnormalities demonstrated.
CT Ab/Pelvis 07/21: Multiple dilated loops of mid small bowel. Distal small bowel is decompressed, and the proximal small bowel is not dilated. Findings are consistent with high-grade small bowel obstruction. Lack of dilation of the proximal small
bowel raises concern for closed loop small bowel obstruction. Exact transition point is not appreciated. No pneumatosis intestinalis or extraluminal air. No abdominal pelvic free fluid. Mild prostatic enlargement.
Abdominal X-ray 07/22: Again seen are multiple dilated small bowel loops within the midabdomen compatible with obstruction. Small bowel loops within the right lower quadrant are relatively decompressed. Small amount of gas and stool within the
proximal colon, slightly improved compared to the prior study. Distal colon is decompressed.
Small Bowel X-ray 07/22: Persistently dilated loops of jejunal small bowel, but contrast material does pass into the colon after 2 hours.
Procedure findings : N/a
Discharge Plan
-
Patient Disposition: Home (Routine Discharge)
Discharge Diagnosis/Procedures: Acute high-grade Small Bowel Obstruction;
Mild Prostatic Enlargement
Condition: Good
Diet: As tolerated, Low Fiber and Low Residue
Additional Diets: Avoid roughage (raw carrot, raw celery, raw broccoli etc.) in your diet
Activity: No restrictions
Driving Restrictions: As prior to admission
Bathing Restrictions: None
Activity Restrictions/Additional Instructions:
Follow-up with urology as outpatient for enlarged prostate.
Instructions: Low-fiber diet
Referrals:
Candida Choi PA [Family Provider, Family Practice] - in less than 1 week
Kelby Arnold MD [Active, Surgical] - in two to four weeks
Additional Discharge Medication Instructions: Thank you for visiting [facility].
No changes have been made to your prescription at this time.
Prescriptions:
Continued
therapeutic multivitamin Tablet
1 tab PO DAILY
cholecalciferol (vitamin D3) [Vitamin D3] 25 mcg (1,000 unit) Tablet
25 mcg PO DAILY
Discharge Orders:
Discharge Patient (As Directed); Ordered 07/24/25
Ordered By: Gabriella Smith
Discharge Date and Time
Discharge Date/Time: 07/24/25 12:30
Print Language: MALAY
--- NOTE | 2025-07-24 11:26 | W.PN.GS2 ---
Today's Communication / Plan
-
Advance diet
Dispo planning
Assessment / Plan
-
59-year-old male with probable partial small bowel obstruction, recurrent, likely secondary to adhesions in setting of umbilical herniorrhaphy with mesh. No clinical signs of bowel compromise or immediate threat.
AFVSS
No leukocytosis
Passing flatus/BMs, tolerating liquids
07/22 SBFT with some delayed transit but contrast did reach colon, some sb distention still present on image. NGT removed after testing.
Plan:
Low residue diet
Analgesics if needed
OP follow up planned to discuss elective surgical options
Ok for d/c from surgical standpoint once tolerating PO intake
Subjective Data
-
Date of Service: July 24, 2025
Pt seen and examined at bedside with Dr. Christina. Denies n/v. Tolerating fulls. Has bm's and flatus overnight. Denies pain.
Objective Data
-
Intake and Output
07/23/25 07/24/25 07/25/25
06:59 06:59 06:59
Intake Total 990 / 990 360 / 360
Output Total 525 / 525
Balance 465 / 465 360 / 360
Intake:
Oral fluids 360 / 360
IV fluids (Total) 960 / 960
Amount instilled into GI Tube ( 30 / 30
Total)
Kerr Sump 30 / 30
Output:
Gastrointestinal tube output ( 100 / 100
Total)
Kerr Sump 100 / 100
Urine, Voided 425 / 425
Other:
How many times incontinent 3
MODERATE amount urine
Number of approximated MODERATE 2
amounts of urine
Vital Signs
Temp Pulse Resp BP Pulse Ox
97.8 F 71 18 135/81 98
07/24/25 07:27 07/24/25 07:27 07/24/25 07:27 07/24/25 07:27 07/24/25 10:59
Lab Results
07/24/25 05:45
07/24/25 05:45
Calcium 8.3 mg/dl (8.4-10.2) L 07/24/25 05:45
Total Bilirubin 2.1 mg/dl (0.2-1.3) H 07/21/25 04:33
AST 28 U/L (17-59) 07/21/25 04:33
ALT 20 U/L (0-50) 07/21/25 04:33
Alkaline Phosphatase 73 U/L (38-126) 07/21/25 04:33
Total Protein 7.5 g/dl (6.3-8.2) 07/21/25 04:33
Albumin 5.0 g/dl (3.5-5.0) 07/21/25 04:33
Physical Exam
-
NAD
ABD soft, nd, nt
--- NOTE | 2025-07-24 13:18 | CM ---
Patient has been medically cleared for discharge to home with no additional services. Patient arranged for transport home.
[2025-07-26 13:56] LABS: Calprotectin, Fecal 2790 ug/g (<=49)
== END 2025-07-24 12:30 | disposition home or self-care (01) | DRG 390 ==
LOC: 4 EAST ACU 10:43
PROVIDERS: Emergency Medicine; Student in an Organized Health Care Education/Training Program; ADMITTING PHYSICIAN Hospitalist; ATTENDING PHYSICIAN Internal Medicine; CONSULT PHYSICIAN Surgery; EMERGENCY PHYSICIAN Emergency Medicine; FAMILY PHYSICIAN Physician Assistant Medical
DX: K56.51 Intestinal adhesions [bands], with partial obstruction (principal); E80.6 Other disorders of bilirubin metabolism; N40.0 Benign prostatic hyperplasia without lower urinary tract symptoms; Z87.19 Personal history of other diseases of the digestive system
CPT/HCPCS: 74019; 74177; 74250; 76700; 80048; 80053; 83690; 83993; 84443; 85025; 86803; 93005; 96361; 96374; 96375; 99285; Q9967